=== PATIENT | female | born 1995 | race Caucasian/White ===

== ENCOUNTER → 2023-07-09 07:12 | Outpatient (CLI) | payer OTHER, SELFPAY ==
[2023-07-09 08:35] LABS: Follicle Stimulating Hormone 5.95 mIU/mL
[2023-07-09 08:36] LABS: Prolactin 14.9 ng/mL (3.0-18.6)
[2023-07-09 08:49] LABS: Thyroid Stimulating Hormone 2.97 uIU/mL (0.47-4.68)
[2023-07-22 06:14] LABS: Testosterone Total 15.1 ng/dL (10.0-55.0)
== END ==
PROVIDERS: PCP Family Medicine; Referring Provider Family Medicine; Visit Provider Family Medicine
DX: Z31.69 Encounter for other general counseling and advice on procreation (principal)
CPT/HCPCS: 36415; 83001; 83002; 84146; 84402; 84403; 84443

== ENCOUNTER → 2023-10-15 16:05 | Outpatient (CLI) | payer OTHER, SELFPAY ==
--- NOTE | 2023-10-15 16:07 | DI.US.S_ITS ---
PROCEDURE: US PELVIC COMPLETE INDICATIONS: INFERTILITY TECHNIQUE: Real-time scanning was performed of the pelvic organs, with image documentation. Additional endovaginal scanning was necessary due to incomplete visualization of the adnexal and endometrial structures by transabdominal scanning. COMPARISON: None. FINDINGS: Uterus: Uterus is anteverted and normal in size at 9.9 x 3.7 x 5.2 cm. The myometrium is homogeneous. The endometrium measures 1.1 cm combined thickness. This should be correlated with patient's menstrual history. Ovaries: The right ovary measures 4.1 x 3.2 x 2.7 cm, with a calculated ovarian volume of 18.4 cc. The left ovary measures 4.5 x 2.9 x 3.1 cm, with a calculated ovarian volume of 21.5 cc. The ovaries have a normal sonographic appearance. Greater than 12 follicles can be seen in each ovary. There is a 2.1 x 1.8 x 1.6 cm complex cyst involving the patient's left ovary which may represent a hemorrhagic cyst. Other: No pathologic free abdominal or pelvic fluid. IMPRESSION: 1. 2.1 cm complex cyst involving the patient's left ovary which may represent a hemorrhagic cyst. 2. Prominent endometrium at 1.1 cm. This should be correlated with the patient's menstrual history. 3. Greater than 12 follicles per each ovary. 4. Free fluid of in the cul-de-sac which is likely physiologic. REFERENCE NUMBERS DELETE FROM FINAL REPORT Endometrial thickness thresholds for recommending bx: * >5 mm cutoff in post-menopausal women with bleeding, with or without HRT. * 8 mm vs 11 mm cutoff (no consensus) in post-menopausal women without bleeding, with or without HRT/tamoxifen therapy. * 18 mm cutoff in pre-menopausal women (after first repeating US in proliferative phase). * Post-endometrial ablation thickness >3 mm is associated with bleeding from persistent or regenerated endometrium. Diagnostic criteria for retained products of conception: * Endometrial thickening of 10 mm or more: 80% sensitive, but only 20% specific. Less than 10 mm thick has high negative predictive value for retained products. * Discrete endometrial or intrauterine mass: 63-80% positive predicted value for RPOC. * Color Doppler: RPOC has variable vascularity. If not vascular flow, ddx of blood clot vs avascular RPOC. Even minimal blood flow increases positive predictive value to 90%. Normal ovarian volumes: * At menarche: 4.2 +/- 2 mL * Pre-menopause: 9 +/- 6 mL; up to 20 mL is normal. * Post-menopause: 3 +/- 2 mL; up to 10 mL is normal. Management of incidental adnexal findings on CT/MRI: ACR White Paper. * Premenopausal: can use 50 years of age as cutoff if LMP not known, to include perimenopausal women. Early post-menopause: within 5 years of LMP, or 50-55 years of age. Late menopause: >5 years from LMP, or >55 years of age. * Exclusions: o Normal findings: hypodense ovary on CT, crenulated corpus luteum, asymmetric ovary (within 95% confidence interval) with normal shape. o Unimportant findings: calcifications w/o asscd mass lesion, previously characterized by other imaging, documented stability for >2 years. * Benign-appearing cysts: oval or round, unilocular with uniform contents (layering blood ok if premenopausal), regular or imperceptible wall, no solid components or mural nodule, and <10 cm in diameter. o Premenopausal: 5 cm or less, no followup needed. >5 cm: recommend 6-12 week US followup. o Early post-menopause: 3 cm or less, no followup needed. 3-5 cm: recommend 6-12 week US followup. >5 cm: US characterization needed. o Late post-menopause: 3 cm or less, no followup needed. > 3cm: US characterization needed. Can also use a threshold value of 1 cm. * Probably benign cysts: angulated margins, not round or oval, poorly imaged. o Premenopausal: 3 cm or less, no followup needed. 3-5 cm: 6-12 week US followup. 5 cm: US characterization needed. o Early post-menopause: 3 cm or less, no followup needed. > 3cm: US characterization. o Late post-menopause: 1 cm or less, no followup needed. > 1cm: US characterization. * Other diagnostic features: include solid component, mural nodule, septations, hyperdense, laying blood if post-menopause. o Non-specific features: US characterization needed. o Probably diagnostic features: manage as appropriate. Management of asymptomatic adnexal cysts on US: SRU Consensus Statement * Normal findings: o Dominant follicles 3 cm or less in reproductive age female. o Corpus luteum 3 cm or less in reproductive age female (thick hypervascular shelton, +/- internal echoes, +/- crenulated appearance). o Simple cysts 1 cm or less in postmenopausal females. * Simple cysts OR thin walled cysts with single thin septation/focal wall calcif: o Reproductive age, 5 cm or less: no followup needed. Greater than 5 cm to 7 cm: yearly followup US. o Postmenopausal: >1 cm to 7 cm: yearly followup US. o Any age and size >7 cm: pelvic MRI or surgical consult. * Hemorrhagic cysts: reticular pattern, no internal flow, +/- solid area with concave margins. o Reproductive age, 5 cm or less: no followup needed. Greater than 5 cm: 6-12 week followup US. o Early postmenopause, any size: 6-12 week followup US. o Last postmenopause: consider surgical consult. * Endometrioma: homogeneous internal echoes, +/- echogenic foci in wall. o Any age: 6-12 week followup US. If not surgically removed, yearly followup. * Dermoid: focal or diffuse hyperechoic component, hyperechoic lines/dots, acoustic shadowing. o Yearly followup if not surgically removed. * Lesions with findings suggestive of, but not classic for, hemorrhagic cyst, endometrioma, or dermoid: o Reproductive age: 6-12 week followup US. If unchanged, consider MRI. If MRI does not confirm endometrioma or dermoid: surgical consult. o Postmenopause: consider surgical consult. * Cysts with multiple thin septations or mural nodule without flow: o Probably benign, but consider surgical consult. * Cysts with thick irregular septations or mural nodule with flow: o Worrisome for malignancy, consider surgical consult. Polycystic ovarian syndrome reference text. Androgen Excess and PCOS Society criteria (2009): o Hyperandrogenism (hirsuitism or hyperandrogenemia) AND o Ovarian dysfunction (oligo-/anovulation OR polycystic ovaries). US criteria for polycystic ovaries: only 1 ovary meeting these criteria is sufficient. o One or both ovaries demonstrate 12 or more follicles 2-9 mm in diameter OR o Ovarian volume exceeds 10 cubic cm by ellipsoid formula. Incidental polycystic ovaries on US: only 5-10% of such women will have classic symptoms of PCOS. Reporting parameters: o Age, LMP. o Menstrual history: regular menstruating women whould be scanned during early follicular phase (day 3-5). Oligo- or amenorrheic women may be scanned at random, or between days 3-5 after progesterone induced bleeding. o Medications: oral contraceptives, leuoprolide, fertility medications. Ovary findings: o number and size range of follicles. o Measure largest follicle in 3 axes, and calculate average diameter. o Any follicle >10 mm or corpus luteum should prompt repeat US during next menstrual cycle. o Ovarian volumes using simplified ellipsoid formula. Sample Impression text: o Findings meet the [place] definition of polycystic ovaries. In the absence of ovulatory dysfunction or clinically/biochemically diagnosed hyperandrogenism, findings are non specific and do not indicate the presence of polycystic ovarian syndrome. o For women with ovulatory dysfunction: Findings meet the [place] 2003 definition for polycystic ovaries. Findings and the clinical history of ovulatory dysfunction in the absence of hyperandrogenism satisfy [place] criteria, but not the Androgen Excess and PCOS Society guidelines, for the diagnosis of PCOS. Further clinical evaluation is warranted. We strive to produce accurate, complete, and clear reports of imaging services. To assist us in improving patient care, this report was composed using standard report templates and voice recognition software. Therefore, it may contain abnormal punctuation, insertions and/or omissions. Occasional wrong-word or sound-alike substitutions may occur. Though we review the report and make efforts to correct it, we do recommend that the report be read carefully in proper context to recognize any text inaccuracies. Dictated by: Huey Diez M.D. on 10/15/2023 at 17:08 Approved by: Huey Diez M.D. on 10/15/2023 at 17:13
== END ==
PROVIDERS: PCP Family Medicine; Referring Provider Family Medicine; Visit Provider Family Medicine
DX: Z31.9 Encounter for procreative management, unspecified (principal); N97.0 Female infertility associated with anovulation; N83.202 Unspecified ovarian cyst, left side
CPT/HCPCS: 76856

== ENCOUNTER → 2023-11-18 08:36 | Outpatient (CLI) | payer OTHER, SELFPAY ==
[2023-11-18 10:31] LABS: HCG Quantitative /Beta subunit 18.9 mIU/mL
== END ==
LOC: LAB 08:36
PROVIDERS: PCP Family Medicine; Referring Provider Student in an Organized Health Care Education/Training Program; Visit Provider Student in an Organized Health Care Education/Training Program
DX: N91.2 Amenorrhea, unspecified (principal)
CPT/HCPCS: 36415; 84702

== ENCOUNTER → 2023-11-25 16:34 | Outpatient (CLI) | payer OTHER, SELFPAY ==
[2023-11-25 18:02] LABS: HCG Quantitative /Beta subunit 557.3 mIU/mL
== END ==
LOC: LAB 16:35
PROVIDERS: PCP Family Medicine; Referring Provider Student in an Organized Health Care Education/Training Program; Visit Provider Student in an Organized Health Care Education/Training Program
DX: N91.2 Amenorrhea, unspecified (principal)
CPT/HCPCS: 36415; 84702

== ENCOUNTER → 2023-11-27 17:51 | Outpatient (CLI) | payer OTHER, SELFPAY ==
[2023-11-27 18:32] LABS: HCG Quantitative /Beta subunit 1727.6 mIU/mL
== END ==
LOC: LAB 17:52
PROVIDERS: PCP Family Medicine; Referring Provider Student in an Organized Health Care Education/Training Program; Visit Provider Student in an Organized Health Care Education/Training Program
DX: N91.2 Amenorrhea, unspecified (principal); E28.2 Polycystic ovarian syndrome
CPT/HCPCS: 36415; 84702

== ENCOUNTER → 2024-01-15 11:06 | Outpatient (CLI) | payer OTHER, SELFPAY ==
[2024-01-15 11:36] LABS: Add Manual Diff / Slide Review NO; Basophils Absolute Auto 0 /uL (0-100); Basophils Percent Auto 0.5 % (0-2); Eosinophils Absolute Auto 100 /uL (0-450); Eosinophils Percent Auto 1.1 % (2-4); Lymphocytes Absolute Auto 1500 /uL (1100-4500); Lymphocytes Percent Auto 25.7 % (25-40); Mean Corpuscular HGB Conc 34.3 % (30-36); Mean Corpuscular Hemoglobin 29.9 PG (26-34); Mean Corpuscular Volume 87.2 fL (80-100); Monocytes Absolute Auto 300 /uL (0-900); Monocytes Percent Auto 5.2 % (3-14); Neutrophils Absolute Auto 4000 /uL (1500-7000); Neutrophils Percent Auto 67.5 % (50-75); Platelet Count 244 X10^3/uL (150-400); Red Cell Distribution Width 13.4 % (11.6-14.8); White Blood Cell Count 5.9 X10^3/uL (4.5-11.0)
[2024-01-15 16:44] LABS: Hepatitis B Surface Antigen NEGATIVE s/c (NEGATIVE); Rubella Antibody IgG 29.3 IU/mL (>15)
[2024-01-15 17:05] LABS: HIV 1 & 2 Ab/Ag 4th Gen Combo NEGATIVE (NEGATIVE); Hep C Virus Ab w/Reflex Quant NEGATIVE s/c (NEGATIVE)
[2024-01-16 09:19] LABS: Varicella IgG Antibody <135 index (Immune >165)
[2024-01-17 00:42] LABS: RPR Screen Non Reactive (Non Reactive)
== END ==
PROVIDERS: PCP Family Medicine; Referring Provider Student in an Organized Health Care Education/Training Program; Visit Provider Student in an Organized Health Care Education/Training Program
DX: Z34.80 Encounter for supervision of other normal pregnancy, unspecified trimester (principal)
CPT/HCPCS: 36415; 80055; 86787; 86803; 86850; 86900; 86901; 87086; 87389

== ENCOUNTER → 2024-03-02 15:54 | Outpatient (CLI) | payer OTHER, SELFPAY ==
[2024-03-05 22:31] LABS: AFP Value 103.5 ng/mL (.); Insulin Dep Diabetes No (.); OSBR Risk 1IN 311 (.); Results Report (.); Test Results *Screen Negative* (.)
== END ==
LOC: LAB 15:55
PROVIDERS: PCP Family Medicine; Referring Provider Student in an Organized Health Care Education/Training Program; Visit Provider Student in an Organized Health Care Education/Training Program
DX: Z34.82 Encounter for supervision of other normal pregnancy, second trimester (principal); Z3A.16 16 weeks gestation of pregnancy
CPT/HCPCS: 36415; 82105

== ENCOUNTER → 2024-03-05 07:44 | Outpatient (CLI) | payer OTHER, SELFPAY ==
--- NOTE | 2024-03-05 07:45 | DI.US.S_ITS ---
PROCEDURE: US OB >= 14 WEEKS FETUS INDICATIONS: anatomy scan OUTSIDE/PRIOR DATING DATA: Last menstrual period (LMP): Not available. LMP-based estimated date of delivery (SUSAN): Not available. First dating scan (date and location): 12/18/2023 at [facility]. Estimated date of delivery (SUSAN) from first dating scan: 07/31/2024. The calculations are made using the provided SUSAN of 07/29/2024. TECHNIQUE: Real-time scanning was performed of the fetus, with image documentation and biometric measurements. Endovaginal scanning: Not performed COMPARISON: [facility], US, OB >= 14 WEEKS FETUS, 12/18/2023, 8:56. FINDINGS: General: A single living intrauterine gestation is present. Presentation: Breech. Placenta: Placental position is anterior , without previa. Amniotic fluid index: 16.5 cm, normal range is 5-24 cm. Single deepest vertical pocket is 5.1 cm. heart rate: 153 beats per minute. Maternal cervical canal: Closed measuring 6.1 cm long. Normal lower limit is 2.5 cm. biometrics: Biparietal diameter: 18 weeks 1 day Head circumference: 18 weeks 6 days Abdominal circumference: 20 weeks 1 day Femur length: 18 weeks 4 days Clinically estimated gestational age: 19 weeks 1 day Composite gestational age from present scan: 18 weeks 6 days Estimated weight and percentile: 286 g; 56%. Anatomic survey: Neuro: Ventricles are non-dilated at less than 10 mm. Cisterna magna is normal at 3-11 mm. Cerebellum is normal in size and morphology. Nuchal skin fold: Normal at less than 6 mm between 14-21 weeks gestational age. Face: Nose and lips, facial profile are normal. Spine: No evidence for spina bifida. Heart: 4-chambered heart is present, with normal ventricular outflow tracts. Diaphragm: Diaphragm is intact. Stomach: Left-sided stomach is present. Kidneys: No hydronephrosis. Normal is less than 5 mm in 2nd trimester, less than 7 mm in 3rd trimester. Cord: 3-vessel cord has orthotopic insertion. Bladder: Normal in size. Extremities: All 4 extremities identified. IMPRESSION: 1. A single living intrauterine gestation with appropriate interval growth. The estimated weight is 56% for gestational age. 2. Normal anatomic survey. We strive to produce accurate, complete, and clear reports of imaging services. To assist us in improving patient care, this report was composed using standard report templates and voice recognition software. Therefore, it may contain abnormal punctuation, insertions and/or omissions. Occasional wrong-word or sound-alike substitutions may occur. Though we review the report and make efforts to correct it, we do recommend that the report be read carefully in proper context to recognize any text inaccuracies. Dictated by: Damián Keenan M.D. on 03/05/2024 at 13:47 Approved by: Damián Keenan M.D. on 03/05/2024 at 13:51
== END ==
LOC: US 07:44
PROVIDERS: PCP Family Medicine; Referring Provider Student in an Organized Health Care Education/Training Program; Visit Provider Student in an Organized Health Care Education/Training Program
DX: Z34.82 Encounter for supervision of other normal pregnancy, second trimester (principal); Z3A.18 18 weeks gestation of pregnancy
CPT/HCPCS: 76811

== ENCOUNTER → 2024-04-22 06:59 | Outpatient (CLI) | payer OTHER, SELFPAY ==
[2024-04-22 08:41] LABS: Hematocrit 36.9 % (36-46); Hemoglobin 12.9 g/dL (12.0-16.0)
[2024-04-22 09:35] LABS: GTT (PREG) 1 Hour PP 50gm Dose 73 mg/dL (76-139)
== END ==
LOC: LAB 07:00
PROVIDERS: PCP Family Medicine; Referring Provider Student in an Organized Health Care Education/Training Program; Visit Provider Student in an Organized Health Care Education/Training Program
DX: Z3A.26 26 weeks gestation of pregnancy (principal); Z34.82 Encounter for supervision of other normal pregnancy, second trimester
CPT/HCPCS: 82950; 85014; 85018; 86850

== ENCOUNTER 2024-05-02 12:24 | Outpatient (CLI) | payer OTHER, SELFPAY ==
[2024-05-02 13:12] LABS: Bilirubin Urine UA NEGATIVE (NEGATIVE); Color Urine UA YELLOW; Glucose Urine UA NEGATIVE (Negative); Ketones Urine UA NEGATIVE (NEGATIVE); Leukocyte Esterase Urine UA 3+ (NEGATIVE); Nitrite Urine UA NEGATIVE (Negative); Occult Blood Urine UA 2+ (Negative); Protein Urine UA NEGATIVE (Negative); Urobilinogen Urine UA 0.2 E.U./dL (0.2)
[2024-05-02 13:15] LABS: Appearance Urine UA CLOUDY
[2024-05-02 13:29] LABS: Bacteria Urine Few (2-10); RBC Urine 1-5/HPF (0-5/HPF); Urine Volume 10mL (spun); WBC Urine 30-100/HPF (0-5/HPF)
[2024-05-02 13:30] LABS: Culture Indicated Urine Specimen Cultured
[2024-05-02 13:31] LABS: Squamous Epithelial Cell Urine 0-1 /HPF (0-5/HPF)
[2024-05-02] MEDS: cefTRIAXone 1,000 MG in SODIUM CHLORIDE 0.9% 100 ML 200 MG IV (13:57)
== END 2024-05-02 14:36 | disposition home or self-care (01) ==
LOC: OB 05-04 06:11
PROVIDERS: Obstetrics & Gynecology; PCP Family Medicine; Referring Provider Student in an Organized Health Care Education/Training Program; Visit Provider Student in an Organized Health Care Education/Training Program
DX: O23.42 Unspecified infection of urinary tract in pregnancy, second trimester (principal); Z3A.27 27 weeks gestation of pregnancy
CPT/HCPCS: 59025; 59050; 81003; 81015; 87086; G0378; G0379; J0696

== ENCOUNTER 2024-05-04 14:39 | Observation (INO) | payer OTHER, SELFPAY ==
[2024-05-04 15:39] LABS: Add Manual Diff / Slide Review NO; Basophils Absolute Auto 0 /uL (0-100); Basophils Percent Auto 0.6 % (0-2); Eosinophils Absolute Auto 0 /uL (0-450); Eosinophils Percent Auto 0.6 % (2-4); Hematocrit 36.5 % (36-46); Hemoglobin 12.7 g/dL (12.0-16.0); Lymphocytes Absolute Auto 800 /uL (1100-4500); Lymphocytes Percent Auto 10.8 % (25-40); Mean Corpuscular HGB Conc 34.9 % (30-36); Mean Corpuscular Volume 88.9 fL (80-100); Monocytes Absolute Auto 600 /uL (0-900); Monocytes Percent Auto 8.6 % (3-14); Neutrophils Absolute Auto 5900 /uL (1500-7000); Neutrophils Percent Auto 79.4 % (50-75); Platelet Count 191 X10^3/uL (150-400); Red Cell Distribution Width 13.3 % (11.6-14.8); White Blood Cell Count 7.4 X10^3/uL (4.5-11.0)
[2024-05-04 16:07] LABS: Alanine Aminotransferase 18 IU/L (<35); Albumin 3.9 g/dL (3.5-5.0); Albumin Globulin Ratio 1.6 (1.0-2.8); Alkaline Phosphatase 46 U/L (38-126); Aspartate Aminotransferase 31 IU/L (14-36); Bilirubin Total 0.4 mg/dL (0.2-1.3); Blood Urea Nitrogen 9 mg/dL (7-17); Carbon Dioxide 23 mmol/L (22-32); Chloride 110 mmol/L (98-107); Estimated Glomerular Filt Rate > 60 mL/min (>60); Globulin 2.5 g/dL (1.7-4.1); Glucose 91 mg/dL (70-100); HEMOLYSIS < 15 (0-50); Potassium 3.8 mmol/L (3.4-5.1); Sodium 135 mmol/L (137-145); Total Protein 6.4 g/dL (6.3-8.2)
[2024-05-04 16:16] LABS: Influenza A - CEPHEID Flu A POSITIVE (NEGATIVE); Influenza B - CEPHEID Flu B NEGATIVE (NEGATIVE); Respiratory Syncytial Virus Negative (Negative)
[2024-05-04 16:19] LABS: COVID-19 CEPHEID 4-PLEX PCR Negative (Negative)
--- NOTE | 2024-05-04 16:28 | PM.OBTRLD ---
Visit Information Visit Information Date of evaluation: 05/04/24 Primary OB Provider: Daniela Oconnor On-call OB Provider: Marixa Rodriguez Reason for Evaluation: Yes other Comments/Additional reasons for admission: URI sx, subjective fever, bilteral flank pain Vital Signs Vital Signs: VSS/afebrile per chart review [facility] Surgical History (Updated 02/14/19 @ 20:50 by Carlee Blackwood) Anesthesia History of wisdom tooth extraction (~08/2016) Family History (Updated 11/26/23 @ 13:06 by Mica Lucas RN) Father Hyperlipidemia Hypertension Grandfather Hyperlipidemia Prostate cancer Grandfather Diabetes mellitus Heart disease Hypertension Hyperlipidemia Stroke Grandmother Diabetes mellitus Hyperlipidemia Breast cancer Social History marital status: number of children: 1 household members: spouse and children lives independently: Yes caregiver/support person: Yes housing: house pets and animals: No education level: college (Associates degree) occupational status: unemployed current occupational exposures/hazards: No special gamaliel needs: No travel history: recent (domestic only) seatbelt use: always helmet use: Yes water heater temp set < 120 deg: Yes working smoke detector in home: Yes fire extinguisher in home: Yes carbon monox detector in home: Yes firearms in home: No do you feel safe at home: Yes Smoking Status: Never smoker second hand exposure: No alcohol intake: former (~1 glass wine/week when not ) substance use type: does not use during the past year weight has: decreased > 10 lbs well-balanced diet: daily or most days daily servings fruits/ve or more times/day caffeine: Yes (1 cup coffee in AM) Type(s) of exercise: walking, resistance training and running Review of Systems ENT Ears, Nose, Mouth, and Throat: Yes nasal congestion Cardiovascular Cardiovascular: Denies dyspnea Respiratory Respiratory: Reports chest congestion, Reports cough, Denies dyspnea and Denies wheezing Genitourinary Comments: denies Musculoskeletal Musculoskeletal: Reports myalgias Comments: bilateral flank pain Allergic/Immunologic Allergic/Immunologic: Denies wheezing Exam Vital Signs (past 8 hours): VSS/afebrile Tc 97.6 Narrative Exam Narrative: sitting upright in bed, mask in place; ill-appearing without acute distress Const General: cooperative and comfortable Nutritional Appearance: average body habitus Orientation: alert and awake Limitations: mental status not altered HENMT Head: normal to inspection Mouth: moist mucous membranes Eyes General: appearance normal, both eyes and all related structures Neck Neck: normal visual inspection and No lymphadenopathy Chest Chest: normal inspection of the chest Resp Effort & Inspection: normal respiratory effort Auscultation: clear to auscultation bilaterally, no bronchial breath sounds, no crackles, lung sounds not diminished, no rales, no rhonchi and no wheezes Cardio Rate: regular rate Rhythm: regular rhythm GI Inspection: normal to inspection Other: gravid, size c/w dates General: No CVA tenderness Other: exam deferred Back/Spine/Pelvis Back: normal to inspection Skin General: no rashes or lesions noted Neuro General: patient alert, patient awake and patient oriented x3 Extrem General: normal to inspection Psych Appearance: grossly normal Mental Status: mental status grossly normal Speech and Movement: speech and movement normal Judgment: judgment good Objective Labs 05/04/24 15:30 05/04/24 15:30 Labs: Laboratory Results - last 24 hr 05/04/24 05/04/24 15:00 15:30 WBC 7.4 RBC 4.10 Hgb 12.7 Hct 36.5 MCV 88.9 MCH 31.0 MCHC 34.9 RDW 13.3 Plt Count 191 Neut % (Auto) 79.4 H Lymph % (Auto) 10.8 L [place] % (Auto) 8.6 Eos % (Auto) 0.6 L Baso % (Auto) 0.6 Neut # (Auto) 5900 Lymph # (Auto) 800 L [place] # (Auto) 600 Eos # (Auto) 0 Baso # (Auto) 0 Sodium 135 L Potassium 3.8 Chloride 110 H Carbon Dioxide 23 BUN 9 Creatinine 0.50 L Estimated GFR > 60 BUN/Creatinine Ratio 18.0 Glucose 91 Calcium 9.0 Total Bilirubin 0.4 AST 31 ALT 18 Alkaline Phosphatase 46 Total Protein 6.4 Albumin 3.9 Globulin 2.5 Albumin/Globulin Ratio 1.6 SARS-CoV-2 (PCR) Negative Influenza A (RT-PCR) Flu a positive H Influenza B (RT-PCR) Flu b negative RSV (PCR) Negative Evaluation Evaluation Baseline heart rate: 150 Variability: Average (6-10) monitor accelerations: Present Monitor Decelerations: Absent Category of Tracing: Reactive Status: Category l Diagnosis, Plan/Disposition Plan/Disposition Plan: 29yo at 27w3d by ART presents to triage with c/o progressive URI symptoms with associated myalgias +Flu A pt counseled on and in agreement with recommendation for osteltamivir therapy, rx for 75mg PO x5d sent to pharmacy reschedule routine PNC to next week to avoid office contacts strict fever, infection and respiratory precautions reviewed strict FM/PTL precautions reviewed dispo to home with precautions as above OB Disposition: home
== END 2024-05-04 16:35 | disposition home or self-care (01) ==
PROVIDERS: Obstetrics & Gynecology; Admitting Provider Student in an Organized Health Care Education/Training Program; PCP Family Medicine; Referring Provider Student in an Organized Health Care Education/Training Program; Visit Provider Student in an Organized Health Care Education/Training Program
DX: O26.892 Other specified pregnancy related conditions, second trimester (principal); J10.1 Influenza due to other identified influenza virus with other respiratory manifestations; Z3A.27 27 weeks gestation of pregnancy
CPT/HCPCS: 0241U; 59025; 59050; 80053; 85025; G0378; G0379

== ENCOUNTER → 2024-06-18 08:36 | Outpatient (CLI) | payer OTHER, SELFPAY ==
[2024-06-18 09:00] LABS: Add Manual Diff / Slide Review NO; Basophils Absolute Auto 0 /uL (0-100); Basophils Percent Auto 0.4 % (0-2); Eosinophils Absolute Auto 100 /uL (0-450); Eosinophils Percent Auto 0.7 % (2-4); Hematocrit 40.2 % (36-46); Lymphocytes Absolute Auto 1700 /uL (1100-4500); Lymphocytes Percent Auto 19.6 % (25-40); Mean Corpuscular HGB Conc 34.8 % (30-36); Mean Corpuscular Hemoglobin 31.6 PG (26-34); Mean Corpuscular Volume 90.8 fL (80-100); Monocytes Absolute Auto 600 /uL (0-900); Monocytes Percent Auto 7.3 % (3-14); Neutrophils Absolute Auto 6100 /uL (1500-7000); Platelet Count 150 X10^3/uL (150-400); Red Blood Cell Count 4.42 X10^6/uL (4.0-5.2); Red Cell Distribution Width 13.4 % (11.6-14.8); White Blood Cell Count 8.4 X10^3/uL (4.5-11.0)
--- NOTE | 2024-06-18 09:01 | EKG_ITS ---
[address] [id number] Test Date: 2024-06-18 Pat Name: Melba Muñoz Department: [facility] Room: Gender: Female Food General Manager: NATHAN : 1995 Requested By: Order Number: [id number] Reading MD: Matthew Valentino Measurements Intervals Molt Rate: 66 P: 47 NM: 130 QRS: 60 QRSD: 84 T: 9 QT: 406 QTc: 425 Interpretive Statements Normal sinus rhythm with sinus arrhythmia Electronically Signed On 06-19-2024 18:29:48 PDT by Matthew Valentino
== END ==
PROVIDERS: PCP Family Medicine; Referring Provider Obstetrics & Gynecology; Visit Provider Obstetrics & Gynecology
DX: R00.2 Palpitations (principal)
CPT/HCPCS: 36415; 85025; 93005

== ENCOUNTER → 2024-06-29 16:06 | Outpatient (CLI) | payer OTHER, SELFPAY ==
[2024-06-30 15:52] LABS: Strep Grp B PCR NEG for Grp B Strep
== END ==
PROVIDERS: PCP Family Medicine; Visit Provider Obstetrics & Gynecology
DX: Z34.03 Encounter for supervision of normal first pregnancy, third trimester (principal)
CPT/HCPCS: 87653

== ENCOUNTER 2024-08-01 15:38 | Inpatient (IN) | payer OTHER, SELFPAY ==
--- NOTE | 2024-08-01 16:55 | PM.OBHP.1 ---
OB HPI Date/Time Date of admission: 08/01/24 Date Patient Seen: 08/01/24 Time Patient Seen: 16:56 History of Present Condition Chief complaint: Water Broke : 3 Para: 1 Estimated Date of Delivery: 07/31/24 Estimated Gestational Age (weeks): 40+1 Narrative: Melba Muñoz is a 29 year old female Comments: presents for rupture of membranes at home this morning at 0900, clear fluid. History of Present care: good care Dating criteria: LMP confirmed by 1st trimester US Ultrasounds: normal mid trimester US Obstetrical complications: none Medical complications: none Narrative: Ultrasound Ultrasound Details:: Dating US 12/18/23: philippe IUP with CRL 1.44cm with FHR 154; normal appearing uterus and cervix Anatomy US 03/05/24: normal anatomy, anterior placenta, EFW 56%ile Specific Issues/Plans [ x] cfDNA- neg XY; [x ] MSAFP- neg Rh negative--> [x ] rhogam at 28wks Varicella NI--> vaccinate PCOS, conceived with letrozole/hCG trigger Rizwan (active duty) Assigned to Elvin/Jennifer Preadmission Labs Blood type: A (-) negative -: Antibody screen: negative, Cystic fibrosis screen: unknown, GBS status: negative, HBsAG: negative, HIV: negative, HSV 1: unknown, HSV 2: unknown and RPR/VDLR: negative -: Chlamydia screen: not detected and Gonorrhea screen: not detected -: Rubella: immune and Varicella: not immune HCT: 40.1 HCAB: negative PAP: Normal 1 hr GTT: 73 Evaluation Evaluation Baseline heart rate: 130 Variability: Moderate (11-25) monitor accelerations: Present Monitor Decelerations: Absent Contraction Frequency (minutes): 3 Status: Category l Dilation (cm): 4 Effacement (%): 70 station: -2 Non-invasive Membranes Rupture Test: positive PFSH Medical History (Updated 06/18/24 @ 08:22 by Marixa Rodriguez MD) Heart palpitations Surgical History (Updated 02/14/19 @ 20:50 by Carlee Blackwood) Anesthesia History of wisdom tooth extraction (~08/2016) Family History (Updated 11/26/23 @ 13:06 by Mica Lucas RN) Father Hyperlipidemia Hypertension Grandfather Hyperlipidemia Prostate cancer Grandfather Diabetes mellitus Heart disease Hypertension Hyperlipidemia Stroke Grandmother Diabetes mellitus Hyperlipidemia Breast cancer Social History marital status: number of children: 1 household members: spouse and children lives independently: Yes caregiver/support person: Yes housing: house pets and animals: No education level: college (Associates degree) occupational status: unemployed current occupational exposures/hazards: No special gamaliel needs: No travel history: recent (domestic only) seatbelt use: always helmet use: Yes water heater temp set < 120 deg: Yes working smoke detector in home: Yes fire extinguisher in home: Yes carbon monox detector in home: Yes firearms in home: No do you feel safe at home: Yes Smoking Status: Never smoker second hand exposure: No alcohol intake: former (~1 glass wine/week when not ) substance use type: does not use during the past year weight has: decreased > 10 lbs well-balanced diet: daily or most days daily servings fruits/ve or more times/day caffeine: Yes (1 cup coffee in AM) Type(s) of exercise: walking, resistance training and running Meds Home Medications and Allergies Home Medications Medication Instructions Recorded Confirmed Type acyclovir 200 mg capsule 200 mg PO 5XD #60 caps 07/18/23 07/28/24 Rx vitamin-ferrous sulfate tab PO 11/26/23 07/28/24 History 27 mg iron-folic acid 0.8 mg tablet RSV vac, preF A and preF B(PF) 120 0.5 ml IM ONCE #1 ea 06/18/24 07/28/24 Rx mcg/0.5 mL IM solution (Abrysvo (PF)) Allergies Allergy/AdvReac Type Severity Reaction Status Date / Time No Known Drug Allergies Allergy Unverified 07/28/24 10:30 Review of Systems Review of Systems ROS: Yes All systems reviewed with the patient and are negative except as otherwise documented OB Exam Vital signs Blood Pressure: 122/72 Pulse Rate: 73 Respiratory Rate: 16 Temperature: 97.5 F HENMT Head: normal to inspection Resp Effort & Inspection: normal respiratory effort and able to speak in complete sentences Cardio Rate: regular rate Rhythm: regular rhythm Extremities Lower extremity: Yes normal to inspection GI Other: gravid, nontender, nondistended Objective Labs 08/01/24 16:54 Assessment and Plan Assessment and Plan Assessment and Plan narrative: 29yo at 40+1wks admitted with prelabor rupture of membranes, now in latent labor. -CBC, T&S on admission -continuous EFM -epidural PRN -GBS neg, ppx not indicated -PPH risk low -VTE risk low, SCDs with epidural -anticipate L&D Counseling: Common procedures and interventions related to the management of were explained to the patient, including assistance at vaginal delivery with episiotomy, vacuum, or forceps, use of medications to stop premature labor or induce labor, and assessment including auscultation (listening to the heart), use of electronic monitoring (external and / or internal), and use of scalp electrode and/or intrauterine pressure catheter.? It was also explained that approximately 20-30% of mothers have a need for delivery during their labor course. It was explained to the patient that , labor and delivery are ordinarily normal physiological events and can be expected to provide a healthy outcome for mother and baby in the majority of cases. However, there are complications that may arise during , labor, and delivery, such as: hemorrhage requiring administration of blood and/or blood products, surgical intervention, possibly even hysterectomy for life-saving purposes; possibility of infection requiring antibiotics, prolonged hospital stay, and rarely surgical intervention; possibility of blood clots;? possibility of retained products of conception requiring surgical intervention;? possibility of serious tears or injury to the vagina, cervix, perineum, or rectum;? possibility of injury to abdominal structures if delivery is required;? and rarely maternal or may occur. Time-Based Coding :: [30min] spent with patient and on the chart (including review of chart, obtaining history, exam, reviewing outside data, placing orders, documenting exam and treatment plan, and counseling patient) on [08/01/24].
[2024-08-01 17:04] VITALS: BP 122/72; PULSE 73; RESP 16; TEMP 36.4
[2024-08-01 17:11] LABS: Add Manual Diff / Slide Review NO; Basophils Absolute Auto 100 /uL (0-100); Basophils Percent Auto 0.6 % (0-2); Eosinophils Absolute Auto 0 /uL (0-450); Eosinophils Percent Auto 0.3 % (2-4); Hematocrit 41.9 % (36-46); Hemoglobin 14.7 g/dL (12.0-16.0); Lymphocytes Absolute Auto 1600 /uL (1100-4500); Lymphocytes Percent Auto 11.4 % (25-40); Mean Corpuscular HGB Conc 35.1 % (30-36); Mean Corpuscular Volume 88.3 fL (80-100); Monocytes Absolute Auto 700 /uL (0-900); Neutrophils Absolute Auto 11500 /uL (1500-7000); Neutrophils Percent Auto 82.7 % (50-75); Platelet Count 160 X10^3/uL (150-400); Red Blood Cell Count 4.74 X10^6/uL (4.0-5.2); Red Cell Distribution Width 13.3 % (11.6-14.8)
--- NOTE | 2024-08-01 22:01 | PM.AN.REGBLK ---
Regional Block Pre-procedure Procedure: Continuous Lumbar Epidural for L&D Attending OB provider: Daniela Oconnor PMH/ROS narrative: term SROM, no medical or obstetric complications. Labs: Hct 41.9 % (36-46) 08/01/24 16:54 Plt Count 160 X10^3/uL (150-400) 08/01/24 16:54 Medications: Current Medications Generic Name Dose Route Start Last Admin Trade Name Freq PRN Reason Stop Dose Admin Calcium Carbonate 1,000 mg 08/01/24 16:53 Calcium Carbonate 500 Mg Tab PO Q2HR PRN Dyspepsia Carboprost Tromethamine 250 mcg 08/01/24 16:53 Carboprost 250 Mcg/Ml Ampul IM Q90M PRN Bleeding Lactated Ringer's 1,000 mls @ 100 mls/hr 08/01/24 17:00 Lactated Ringers IV 08/02/24 02:59 CONT CHRIS Oxytocin/Lactated Ringer's 30 unit in 500 mls @ 200 mls/hr 08/01/24 16:53 Oxytocin Premix IV CONT PRN Bleeding Protocol Tranexamic Acid 1,000 mg/ 100 mls @ 600 mls/hr 08/01/24 16:53 Sodium Chloride IV NOW PRN Bleeding Oxytocin/Lactated Ringer's 30 unit in 500 mls @ 2 mls/hr 08/01/24 17:00 Oxytocin Premix IV TITRATE CHRIS Protocol 2 MILLIUNIT/MIN Lidocaine HCl 20 ml 08/01/24 16:53 Lidocaine 1% 20 Ml INJ INTRA-OP PRN Post Delivery Methylergonovine Maleate 0.2 mg 08/01/24 16:53 Methylergonovine 0.2 Mg Tablet PO Q6HR PRN Heavy Bleeding Methylergonovine Maleate 0.2 mg 08/01/24 16:53 Methylergonovine 0.2 Mg/Ml Vial IM NOW PRN Bleeding Misoprostol 800 mcg 08/01/24 16:53 Misoprostol 200 Mcg Tablet [place] NOW PRN Bleeding Misoprostol 400 mcg 08/01/24 16:53 Misoprostol 200 Mcg Tablet SL NOW PRN Bleeding Naloxone HCl 0.2 mg 08/01/24 16:53 Naloxone 0.4 Mg/Ml Vial IV Q2MIN PRN Opiate Reversal Ondansetron HCl 4 mg 08/01/24 16:53 Ondansetron 4 Mg/2 Ml Inj IV Q4HR PRN Nausea And Vomiting Oxytocin 10 unit 08/01/24 16:53 Oxytocin 10 Unit/Ml Vial IM NOW PRN Bleeding Allergies: Allergies Allergy/AdvReac Type Severity Reaction Status Date / Time No Known Drug Allergies Allergy Verified 08/01/24 18:45 Procedure Insertion date: 08/01/24 Insertion time: 22:16 Prep/Local: betadine x3 and 1% lidocaine Interspace: L34 Patient position: sitting Needle: 18 gauge Hustead (CSE: 27g Pencan through Hustead, clear CSF, 1mL 0.25% MPF bupiv) Loss of resistance with: saline RENAE at (cm): 3 Catheter placed at SKIN (cm): 9 Catheter in SPACE (cm): 6 Insertion: No CSF, No Blood, No Paresthesia with insertion, No Paresthesia with injection and No Test dose reaction Initial Medications TEST DOSE time: 22:18 TEST DOSE: 1.5% lidocaine with epinephrine 1:200k (mL): 3 BOLUS DOSE time: 22:30 BOLUS DOSE (mL): 4 BOLUS DOSE med: other (infusate) Infusion INFUSION: 0.125% bupivacaine and with fentanyl 2 mcg/mL Initial rate (mL/hr): 8 Post-procedure Anesthesia date START: 08/01/24 Anesthesia time START: 22:07 Anesthesia date END: 08/02/24 Anesthesia time END: 01:20 Post-procedure Anesthesia Assessment: Yes CV function: HR/BP stable, Yes Resp function: RR/sat/airway adequate, Yes Post-op hydration adequate, Yes Pain control adequate, Yes Nausea & vomiting absent, Yes Temperature > 36 C, Yes Mental status appropriate and No Anesthesia complications
--- NOTE | 2024-08-02 01:26 | PM.OBPRVD ---
Events: Premature Rupture Membrane Labor & Delivery Delivery date: 08/02/24 Delivery monitor: external FHT and external uterine Route of delivery: L&D Laceration Description: None Anesthesia Type: Epidural Complications: none Narrative: The patient progressed to C/C/+2 with epidural anesthesia. After approximately 1.5hrs of maternal pushing efforts, the infant delivered in OA position and restituted LOT. The anterior shoulder delivered with gentle downward pressure. The posterior shoulder and rest of body delivered with ease. The cord was doubly clamped and cut after a 60sec delay with the placed on maternal abdomen. The placenta delivered spontaneously and was intact with a 3-vessel cord. The fundus was noted to be firm with bimanual massage and pitocin. Inspection of the cervix, vagina, and perineum was notable for no lacerations. All sponges were removed from the vagina. The patient tolerated delivery well and remained in the labor room with the at the bedside. Baby 1: gender: Male Placenta delivery description: Spontaneous Cord Vessel Description: 3 Vessels score (1 min): 8 score (5 min): 9 weight: 7 lb 5.921 oz Plan for aftercare: Routine care
[2024-08-02] MEDS: IBUPROFEN 600 MG TABLET PO ×3 (04:00→16:25)
[2024-08-02] MEDS: ACETAMINOPHEN 325 MG TABLET 650 MG PO (04:00)
[2024-08-02] MEDS: DERMOPLAST SPRAY 20% 60 ML 1 SPRAY TOP (04:00)
[2024-08-02] MEDS: WITCH HAZEL/GLYCERIN PADS 1 EACH TOP ×2 (04:00→21:06)
[2024-08-02] MEDS: PRENATAL VIT,CALC/IRON/FOLIC 1 TABLET 1 TAB PO (08:39)
[2024-08-02] MEDS: DOCUSATE 100 MG CAPSULE PO ×2 (08:39→20:55)
--- NOTE | 2024-08-02 13:18 | P.PNOB_ITS ---
Subjective - OB Subjective Patient comments: no complaints and pain well controlled [place] baby status: nursing well Date Patient Seen: 08/02/24 Time Patient Seen: 13:19 Interval history: 29yo [id number] PPD#1 s/p at 40+2wks after PROM. She reports feeling well, denies any pain. Vaginal bleeding is similar to a period. going well, no concerns. Exam Vital Signs (past 8 hours): reviewed in OBIX, within normal parameters Const General: comfortable and No acute distress Resp Effort & Inspection: normal respiratory effort and able to speak in complete sentences Skin General: no rashes or lesions noted Extrem General: No calf tenderness Psych Mood: congruent mood Affect: normal affect Objective Labs 08/01/24 16:54 Labs: Laboratory Results - last 24 hr 08/01/24 16:54 WBC 14.0 H RBC 4.74 Hgb 14.7 Hct 41.9 MCV 88.3 MCH 31.0 MCHC 35.1 RDW 13.3 Plt Count 160 Neut % (Auto) 82.7 H Lymph % (Auto) 11.4 L [place] % (Auto) 5.0 Eos % (Auto) 0.3 L Baso % (Auto) 0.6 Neut # (Auto) 22716 H Lymph # (Auto) 1600 [place] # (Auto) 700 Eos # (Auto) 0 Baso # (Auto) 100 Blood Type A Negative Antibody Screen Negative Assessment & Plan Assessment and Plan (1) Vaginal delivery: Status: Acute Plan day: 1 plan OB: routine care Comments: 29-year-old G3 now P2 day 1, status post , doing well in the period. Discussed potential discharge this afternoon/evening versus tomorrow morning, and patient and her her leaning towards tomorrow morning. -continue routine care -anticipate discharge in the morning Time-Based Coding :: [20min] spent with patient and on the chart (including review of chart, obtaining history, exam, reviewing outside data, placing orders, documenting exam and treatment plan, and counseling patient) on [08/02/24].
[2024-08-02] MEDS: MEASLES,MUMPS,RUBELLA VACC/PF 0.5 ML VIAL SUBCUT (16:57)
--- NOTE | 2024-08-03 07:55 | P.DS_ITS ---
Discharge Providers Provider Date of admission: 08/01/24 15:38 Discharge Date: 08/03/24 Primary care physician: Rosa Robles MD Consults: 08/01/24 16:53 Consult to Anesthesiology Urgent Comment: Consulting Provider: Anesthesiologist Reason for consultation: Epidural 08/03/24 01:25 Consult to [place] [facility] Routine Comment: Discharge provider: Daniela Oconnor DO Summary Hospital Course Date Patient Seen: 08/03/24 Time Patient Seen: 07:55 Diagnoses: Term gestation at 40+2wks Prelabor rupture of membranes Hospital Course: 29yo [id number] admitted at 40+1wks in latent labor with prelabor rupture of membranes. She progressed to an uncomplicated spontaneous vaginal delivery. Her delivery was uncomplicated, and productive of a viable male infant. Her course was unremarkable. On day #2, she was ambulating, tolerating regular diet, voiding spontaneously with minimal lochia. Her pain was well controlled with oral medications, thus she was discharged to home on day #2. Peripartum Data Infant Delivery Method: Natural Vaginal Laceration Description: None Procedures: External monitoring Epidural anesthesia Spontaneous vaginal delivery complications: none [place] 1: Gender: Male Disposition of : home Discharge Diagnosis (1) Vaginal delivery: Status: Acute Status at Discharge Cognitive/behavioral status at discharge: oriented Functional status at discharge: independent ambulation Overall status at discharge: patient is progressing back to baseline Time Spent with Patient Time attestation: Total time spent providing and/or coordinating discharge services: Time spent: Less than 30 minutes Objective Labs 08/01/24 16:54 Exam Vital Signs (past 8 hours): vitals reviewed in OBIX, within normal parameters Const General: cooperative, healthy appearing, comfortable and No acute distress Resp Effort & Inspection: normal respiratory effort GI Inspection: normal to inspection Other: fundus firm and nontender at U-2 Skin General: no rashes or lesions noted Neuro General: patient alert and patient awake Extrem General: normal to inspection, no pedal edema and no calf tenderness Psych Mood: congruent mood Affect: normal affect Discharge Plan Discharge Plan Patient Disposition: Home Provider Discharge Comment: Take ibuprofen 600mg every 6hrs as needed for cramping. Avoid placing anything in the vagina for 6 weeks. I have faxed an order for triple nipple cream to [facility] in [facility]. Please call our office if you have any issues obtaining this prescription. I would suggest you call the pharmacy first prior to driving over there to pick it up. The phone number is [phone]. Discharge orders & Medications Prescriptions: Continued vit-ferrous sulfat-FA 27 mg iron- 0.8 mg tablet PO Discontinued acyclovir 200 mg capsule 200 mg PO 5XD Qty: 60 2RF Abrysvo (PF) 120 mcg/0.5 mL recon soln 0.5 ml IM ONCE Qty: 1 0RF Rx Instructions: as a single dose Follow up/Referrals: Daniela Oconnor DO [Physician] - (6 week Appt w/ Dr. Oconnor: September 13 @ 10:45am check in. 2 week telehealth w/ Dr. Oconnor 08/17/2024 at 4:30pm.) Diet/Activity/Treatments Diet: Diet as Tolerated Activity: As tolerated. Skin/Wound/Dressing Care Report to your healthcare provider any signs of infection, such as:: chills, fever, increased pain and unusual drainage Visit Report/Discharge Packet Instructions: Fitness, Depression, Hemorrhage, DI for Labor and Delivery, Vaginal Stand Alone Forms: Discharge: Care, Patient Portal/API, Stroke Signs & Symptoms Discharge Data Primary Care Provider: Rosa Robles
[2024-08-03] MEDS: RHO(D) IMMUNE GLOBULIN 1,500 UNIT SYRINGE 1500 UNIT IM (09:36)
== END 2024-08-03 09:39 | disposition home or self-care (01) | DRG 807 ==
PROVIDERS: Admitting Provider Student in an Organized Health Care Education/Training Program; PCP Family Medicine; Referring Provider Student in an Organized Health Care Education/Training Program; Visit Provider Student in an Organized Health Care Education/Training Program
DX: O42.02 Full-term premature rupture of membranes, onset of labor within 24 hours of rupture (principal); Z37.0 Single live birth; Z3A.40 40 weeks gestation of pregnancy; Z67.11 Type A blood, Rh negative
CPT/HCPCS: 59050; 59400; 59409; 84112; 85025; 86850; 86900; 86901; G0379; J2790